=== PATIENT | female | born 1970 | race Caucasian/White ===

== ENCOUNTER 2021-05-30 09:44 | Outpatient (RCR) | payer OTHER | END 2021-06-18 | disposition home or self-care (01) | LOC: PT | DX: M72.2 Plantar fascial fibromatosis (principal) ==

== ENCOUNTER 2021-06-22 13:02 | Outpatient (RCR) | payer OTHER | END 2021-06-22 17:00 | disposition home or self-care (01) | LOC: PT 13:02 | DX: M72.2 Plantar fascial fibromatosis (principal) ==

== ENCOUNTER → 2021-10-16 | Outpatient (RCR) | payer OTHER | END | disposition still patient (30) | LOC: PT | DX: M72.2 Plantar fascial fibromatosis (principal) ==

== ENCOUNTER 2021-10-18 09:19 | Outpatient (RCR) | payer OTHER | END 2021-11-15 | disposition home or self-care (01) | LOC: PT | DX: M72.2 Plantar fascial fibromatosis (principal) ==

== ENCOUNTER 2021-11-20 13:00 | Outpatient (RCR) | payer OTHER | END 2021-12-16 | disposition home or self-care (01) | LOC: PT | DX: M72.2 Plantar fascial fibromatosis (principal) ==

== ENCOUNTER → 2022-04-26 | Outpatient (CLI) | payer OTHER | LOC: RAD 17:06 | DX: S92.421A Displaced fracture of distal phalanx of right great toe, initial encounter for closed fracture (principal); W20.8XXA Other cause of strike by thrown, projected or falling object, initial encounter ==

== ENCOUNTER → 2022-07-15 | Outpatient (CLI) | payer OTHER | LOC: RAD 06:50 | DX: M79.672 Pain in left foot (principal) | CPT/HCPCS: J3301; Q9967 ==

== ENCOUNTER → 2023-11-07 | Outpatient (CLI) | payer BC | LOC: RAD 11:38 | DX: M18.0 Bilateral primary osteoarthritis of first carpometacarpal joints (principal) ==